=== PATIENT | male | born 1985 | race Caucasian/White ===

== ENCOUNTER 2022-10-05 12:01 | Emergency (ER) | payer OTHER, SELFPAY ==
--- NOTE | ~2022-10-05 | XR_ITS ---
EXAMINATION: XR pelvis 1-2V, XR femur LT min 2V DATE: 10/05/2022 14:15 INDICATION: Left hip pain. TECHNIQUE: 1. An anteroposterior view of the pelvis was obtained. 2. AP and lateral views of the left femur were obtained on separate overlapping proximal and distal i mages. COMPARISON: None. FINDINGS: Oblique fracture of the proximal left femoral diaphysis which is fixed with an antegrade intramedulla ry julio césar with a pair of interlocking femoral neck screws and a pair of interlocking distal metadiaphyse al screws. Alignment of the fixation is near-anatomic. There is periosteal reaction along the medial side of the fracture and slightly more prominent callus formation about the lateral margin of the fra cture. There is still some discernible lucency along the fracture plane. No new fractures identified. Joint spaces at the bilateral hip sacroiliac joints appear normal. There is a lucent tract potential ly for prior traction at the proximal left tibial metaphysis. There is an irregular cortical contour along the appears be a portion of the posterior weightbearing lateral femoral condyle and the lateral projection. There is rightward deviation of the lower sacrum and coccyx which could be developmental or sequela of prior trauma. Soft tissues are unremarkable. No knee joint effusion. IMPRESSION: 1. Internally fixed proximal diaphyseal fracture of the left femur which appears to be healing in garret r-anatomic alignment. 2. Suggestion of cortical irregularity along the posterior weightbearing lateral femoral condyle whic h could be seen with osteochondral lesion. Correlate with clinical history and could consider either CT or MRI for further evaluation. Reviewed, dictated and finalized at location A. IMPRESSION: 1. Internally fixed proximal diaphyseal fracture of the left femur which appear s to be healing in near-anatomic alignment. 2. Suggestion of cortical irregularity along the posterior weightbearing latera l femoral condyle which could be seen with osteochondral lesion. Correlate with clinical history and could consider either CT or MRI for further evaluation.
--- NOTE | ~2022-10-05 | CT_ITS ---
EXAMINATION: CT hip LT wo con DATE: 10/05/2022 15:17 INDICATION: Severe nontraumatic left hip pain post recent left femoral fracture fixation TECHNIQUE: High resolution computed tomography (CT) of the left hip was performed without intravenous contrast. Additional sagittal and coronal reconstructions were performed. Automated exposure control and iterative reconstruction technique were employed. The dose-length product was 117.49 mGy-cm. COMPARISON: Radiographs dated 10/05/2022 FINDINGS: Internally fixed comminuted fractures of the proximal left femur which includes the previous noted no ndisplaced oblique fracture of the proximal diaphysis as well as a minimally displaced intertrochante kimberly component which was not appreciated on the prior radiographs. Fractures fixed with a partially vi sualized intramedullary julio césar with a pair of interlocking femoral neck screws. The distal portion of th e medullary julio césar and a pair of additional distal interlocking screws seen on the prior radiographs are not included within the field of imaging. There is a small amount of callus formation about the frac ture which does not yet appear solidly bridging. Left hip joint space appears normal with no joint ef fusion. Minimal stranding in the subcutaneous fat localized to the likely site of the prior surgical wound. No abnormal fluid collections to suggest abscess or hematoma. The visualized portions of the v isceral organs in the pelvis are unremarkable including a normal appendix. No pathologically enlarged pelvic or inguinal lymphadenopathy. 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 IMPRESSION: 1. Expected appearance of a healing internally fixed intertrochanteric and subtrochanteric fracture o f the proximal left femur which is in near-anatomic alignment. Reviewed, dictated and finalized at location A. IMPRESSION: 1. Expected appearance of a healing internally fixed intertrochanteric and subt rochanteric fracture of the proximal left femur which is in near-anatomic align ment.
[2022-10-05 12:04] VITALS: BP 143/102; PULSE 119; RESP 20; TEMP 36.6; O2SAT 100
[2022-10-05 13:18] VITALS: BP 140/99; PULSE 108; RESP 18; O2SAT 100
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
[2022-10-05] MEDS: IBUPROFEN 400 MG TABLET 800 MG PO (14:40)
[2022-10-05] MEDS: HYDROcodone/acetaminophen (*CRX) 5-325 MG TABLET 1 TAB PO (14:41)
[2022-10-05 16:06] VITALS: BP 131/88; PULSE 130; RESP 18; O2SAT 100
== END 2022-10-05 16:11 | disposition home or self-care (01) ==
PROVIDERS: Emergency Provider Emergency Medicine
DX: M25.552 Pain in left hip (principal)
CPT/HCPCS: 72170; 73552; 73700; 99284; A9270

== ENCOUNTER 2022-11-02 04:56 | Emergency (ER) | payer OTHER, SELFPAY ==
--- NOTE | ~2022-11-02 | CT_ITS ---
Non-contrast CT scan of the Abdomen and Pelvis Clinical indication: Abdominal pain Technique: 2.5 mm axial scans were obtained through the abdomen and pelvis without intravenous or or al contrast. Dose reduction technique was used on this scan by utilizing automated exposure control a nd iterative reconstruction technique. The dose-length product (DLP) was 225.43 mGy-cm. Findings: Images through the lung bases reveal no abnormalities. There is a 2 mm left UVJ stone, with mild left hydroureteronephrosis and left perinephric stranding. There are additional multiple small bilateral nonobstructing renal stones measuring up to approximate ly 3 mm in size. No right ureteral stone or right hydronephrosis. The liver, spleen, pancreas, gallbladder, and adrenals appear normal. There is no aortic aneurysm. There is no evidence of bowel obstruction. Images through the pelvis were performed. There is no evidence of ascites or lymphadenopathy. Urinary bladder otherwise unremarkable. No pelvic mass seen. No ascites. Impression: 2 mm left UVJ stone, with mild left hydroureteronephrosis. Multiple additional small bilateral nonobstructing renal stones, as detailed above. Reviewed, dictated and finalized at location M. Impression: 2 mm left UVJ stone, with mild left hydroureteronephrosis. Multiple additional small bilateral nonobstructing renal stones, as detailed ab ove.
[2022-11-02 05:03] VITALS: BP 149/89; PULSE 84; RESP 23; TEMP 36.4; O2SAT 100
[2022-11-02] MEDS: SODIUM CHLORIDE 0.9% IV 1,000 ML 999 ML IV CONT ×2 (05:29→06:54)
[2022-11-02] MEDS: ONDANSETRON INJ 4 MG/2 ML VIAL IV PUSH (05:30)
[2022-11-02] MEDS: MORPHINE SULFATE (*CRX) 4 MG/ML INJ IV PUSH (05:30)
[2022-11-02 05:41] LABS: Basophils Percent Auto 0.2 % (0.2-1.2); Eosinophils Absolute Auto 0.1 K/mm3 (0-0.3); Hemoglobin 12.9 g/dL (14.0-18.0); Immature Granulocyte Absolute 0.06 K/mm3 (0.00-0.031); Immature Granulocyte Percent A 0.5 % (0-0.5); Lymphocytes Absolute Auto 2.15 K/mm3 (0.9-3.2); Lymphocytes Percent Auto 16.3 % (18.3-44.2); Mean Corpuscular HGB Conc 33.9 g/dl (32-36); Mean Corpuscular Hemoglobin 32.7 pg (26-34); Mean Corpuscular Volume 96.4 fl (80-100); Mean Platelet Volume 9.6 fl (7.4-10.4); Monocytes Absolute Auto 0.7 K/mm3 (0.1-0.6); Monocytes Percent Auto 5.2 % (2.6-8.5); Neutrophils Absolute Auto 10.1 K/mm3 (1.3-6.7); Neutrophils Percent Auto 76.8 % (45.5-73.1); Platelet Count Result 404 k/mm3 (150-375); Red Blood Count 3.94 M/mm3 (4.6-6.20); Red Cell Distribution Width 12.7 % (11.5-14.5); White Blood Count 13.2 K/mm3 (4.5-10.0)
[2022-11-02] MEDS: KETOROLAC 30 MG/ML VIAL (*BKC) IV PUSH (05:48)
[2022-11-02 05:52] LABS: Alanine Aminotransferase 24 U/L (6-50); Albumin Level 4.5 g/dL (3.5-5.1); Alkaline Phosphatase 146 U/L (38-126); Anion Gap 10 mmol/L (8-16); Aspartate Amino Transferase 28 U/L (17-59); Bilirubin,Total 0.4 mg/dL (0.2-1.3); Blood Urea Nitrogen 13 mg/dL (9-20); Calcium 9.8 mg/dL (8.4-10.2); Carbon Dioxide 24 mmol/L (22-30); Chloride 102 mmol/L (98-107); Estimated CRCL calculation 57 ml/min; Estimated Glomerular Filt Rate > 60; Glucose 109 mg/dL (65-110); Potassium 3.7 mmol/L (3.4-5.0); Sodium 136 mmol/L (137-145)
[2022-11-02] MEDS: HYDROmorphone HCL INJ (*CRX) 1 MG/ML SYR IV PUSH (05:57)
--- NOTE | 2022-11-02 06:12 | ED.ABDPAIN ---
HPI - Abdominal Pain General Chief Complaint: Abdominal Pain <Alyssia Frazier MD - Last Filed: 11/02/22 06:48> Stated Complaint: bladder pain, side pain, <Alyssia Frazier MD - Last Filed: 11/02/22 06:48> Time Seen by Provider: 11/02/22 05:06 <Alyssia Frazier MD - Last Filed: 11/02/22 06:48> History of Present Illness HPI narrative: Patient presents to the emergency department with severe flank pain. He is jumping around the room yelling and cursing and pain. He also states he cannot pee. Symptoms started last night. Denies fevers chills. Denies vomiting. <Alyssia Frazier MD - Last Filed: 11/02/22 06:48> Related Data Allergies/Adverse Reactions: Allergies Allergy/AdvReac Type Severity Reaction Status Date / Time No Known Allergies Allergy Verified 10/05/22 13:15 <Alyssia Frazier MD - Last Filed: 11/02/22 06:48> Review of Systems Review of Systems: Unable to obtain full review of systems due to patient's status and inability to give full history due to pain <Alyssia Frazier MD - Last Filed: 11/02/22 06:48> Exam Narrative: GENERAL: Appears in pain jumping around the room. HEAD: Normocephalic, atraumatic. EYES: EOMI. ENT: Nares clear, no rhinorrhea or epistaxis. NECK: Supple. CHEST: Clear to auscultation. No respiratory distress. HEART: Regular rate and rhythm. ABDOMEN: Soft, nontender, nondistended. EXTREMITIES: Normal range of motion. No edema. SKIN: Warm, dry, no rash. NEURO: No focal deficits. Alert and oriented x3. PSYCH: Normal mood and affect. <Alyssia Frazier MD - Last Filed: 11/02/22 06:48> Course Course Emergency Course: Differential diagnosis includes but not limited to kidney stone, pyelonephritis, colitis Pain not improved after morphine. Toradol and Dilaudid ordered. Patient resting. CT and labs pending <Alyssia Frazier MD - Last Filed: 11/02/22 06:48> Reevaluation(s) Reevaluation #1: Patient care was signed out to me by Dr. Urrutia with UA pending at time of signout. Patient is a 37-year-old male presented emergency department for evaluation of flank pain. Patient does have a 2 mm left UVJ stone. UA was pending at time of signout to make sure there is no underlying urinary tract infection. Patient did have 2+ blood but no evidence of infection at this time. Patient was discharged with urology follow-up. All questions and concerns were addressed. <Sebastian Perdomo MD - Last Filed: 11/02/22 17:31> Vital Signs Vital signs: Vital Signs Temperature 97.6 F 11/02/22 05:03 Pulse Rate 84 11/02/22 05:03 Respiratory Rate 23 H 11/02/22 05:03 Blood Pressure 149/89 H 11/02/22 05:03 Pulse Oximetry 100 11/02/22 05:03 Oxygen Delivery Room Air 11/02/22 05:03 Temperature 98.3 F 11/02/22 08:16 Pulse Rate 96 11/02/22 08:16 Respiratory Rate 16 11/02/22 08:16 Blood Pressure 132/95 H 11/02/22 08:16 Pulse Oximetry 100 11/02/22 08:01 Oxygen Delivery Room Air 11/02/22 05:03 <Alyssia Frazier MD - Last Filed: 11/02/22 06:48> Vital Signs Temperature 97.6 F 11/02/22 05:03 Pulse Rate 84 11/02/22 05:03 Respiratory Rate 23 H 11/02/22 05:03 Blood Pressure 149/89 H 11/02/22 05:03 Pulse Oximetry 100 11/02/22 05:03 Oxygen Delivery Room Air 11/02/22 05:03 Temperature 98.3 F 11/02/22 08:16 Pulse Rate 96 11/02/22 08:16 Respiratory Rate 16 11/02/22 08:16 Blood Pressure 132/95 H 11/02/22 08:16 Pulse Oximetry 100 11/02/22 08:01 Oxygen Delivery Room Air 11/02/22 05:03 <Sebastian Perdomo MD - Last Filed: 11/02/22 17:31> MDM - Abdominal Pain Lab Data Result diagrams: 11/02/22 05:34 11/02/22 05:34 <Alyssia Frazier MD - Last Filed: 11/02/22 06:48> Labs: Lab Results 11/02/22 11/02/22 Range/Units 05:34 08:19 WBC 13.2 H (4.5-10.0) K/mm3 RBC 3.94 L (4.6-6.20) M/mm3
--- NOTE | 2022-11-02 06:37 | PC.NURSE ---
Patient just came out into the nurses station demanding a piece of ice for his lips. Dr. Frazier and staff informed patient he could not have a piece of ice and instructed patient to return to his room.
--- NOTE | 2022-11-02 06:51 | PC.NURSE ---
Upsetter Helper asked patient if he could provide a urine sample. Patient reported he is unable to urinate and has been unable to urinate for [address] Frazier and Dr. Frazier instructed securities underwriter to do a bladder scan. Bladder scan performed and the most scanned was 64ml.
[2022-11-02 07:15] VITALS: BP 126/82; PULSE 90; RESP 14; O2SAT 100
[2022-11-02 08:00] VITALS: BP 132/84; PULSE 89; RESP 13; O2SAT 98
[2022-11-02 08:01] VITALS: PULSE 64; RESP 12; O2SAT 100
[2022-11-02 08:16] VITALS: BP 132/95; PULSE 96; RESP 16; TEMP 36.8
[2022-11-02 08:32] LABS: Appearance Urine Clear (Clear); Bacteria Urine None Seen /hpf; Bilirubin Urine Negative (Negative); Blood Urine 2+ (Negative); Color Urine Yellow (Yellow); Glucose Urine UA Negative (Negative); Ketones Urine Trace mg/dL (Negative); Leukocyte Esterase Ur Negative LEU/UL (Negative); Nitrate Urine Negative (Negative); Non Pathogenic Casts 0-2; Protein Urine Negative (Negative); Specific Grav Ur 1.012 (1.001-1.035); Squamous Epithelial Cell Urine None seen /hpf (Few); Urobilinogen Urine 0.2 mg/dL (<2.0); WBC Urine 0-5 /hpf; pH Urine 6.5 (5.0-9.0)
[2022-11-02 08:38] LABS: Add Urine Microscopic? YES
[2022-11-02 09:00] LABS: Barbiturate Screen Urine Negative (Negative); Benzodiazepines Screen Urine Negative (Negative)
[2022-11-02 09:03] LABS: Cannabinoid Screen Urine Positive (Negative); Cocaine Screen Urine Negative (Negative); Methadone Screen Urine Negative (Negative); Opiate Screen Urine Positive (Negative); Phencyclidine Screen Urine Negative (Negative)
== END 2022-11-02 09:02 | disposition home or self-care (01) ==
PROVIDERS: Emergency Provider Emergency Medicine
DX: N20.0 Calculus of kidney (principal)
CPT/HCPCS: 36415; 74176; 80053; 80307; 81001; 85025; 96361; 96374; 96375; 99284; J1170; J1885; J2270; J2405; J7030

== ENCOUNTER 2022-11-24 09:00 | Outpatient (RCR) | payer OTHER, SELFPAY ==
--- NOTE | 2022-10-27 10:59 | OPREHPOC ---
Outpatient Therapy Plan of Care This is a Multidisciplinary Plan of Care that may contain components documented by all disciplines (PT, OT, and ST.) PT Problem 1 PT Problem #1 Knowledge Deficit PT Goal 1 Goal Pt to be IND with issued HEP Target Visit 8 PT Problem 2 PT Problem #2 Pain PT Goal 1 Goal Pt to report hip pain no greater than 3/10 in the last week Target Visit 8 PT Goal 2 Goal Pt to report 85% improvement in overall function. PT Problem 3 PT Problem #3 Impaired Range of Motion PT Goal 1 Goal Pt to demonstrate passive hip flexion to 120 deg without an increase in pain Target Visit 8 PT Goal 2 Goal Pt to demonstrate passive hip rotation ROM that is equal to his R hip. Target Visit 8 PT Problem 4 PT Problem #4 Impaired Gait PT Goal 1 Goal Pt to ambulate on level ground without deviations Target Visit 8 PT Goal 2 Goal Pt to improve his 2 min walk distance from 340ft to 440ft. Target Visit 8 PT Problem 5 PT Problem #5 Impaired Functional Mobil PT Goal 1 Goal Pt to demonstrate a functional lift and carry of 30lb from ground without an increase in symptoms. Target Visit 8 PT Goal 2 Goal Pt to ambulate stairs with a reciproical pattern without the need for railings.
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
--- NOTE | 2022-11-02 11:58 | PCPTNOTE ---
Patient called & cancelled scheduled appointment this date due to having multiple kidney stones.
--- NOTE | 2022-11-09 08:34 | PCPTNOTE ---
Patient no showed to appointment this date. Called and left voicemail to call back to reschedule if possible.
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
== END 2022-11-24 10:56 | disposition home or self-care (01) ==
LOC: ANHGOSHPT 09:00
DX: S72.301D Unspecified fracture of shaft of right femur, subsequent encounter for closed fracture with routine healing (principal); M54.42 Lumbago with sciatica, left side; G89.29 Other chronic pain
CPT/HCPCS: 97110; 97112; 97140; 97161; 97530; 99199

== ENCOUNTER 2024-02-06 14:35 | Emergency (ER) | payer OTHER, SELFPAY ==
[2024-02-06] VITALS (48 sets, daily range): BP systolic 116–166; BP diastolic 87–116; PULSE 87–115; RESP 10–24; TEMP 36.6–36.9; O2SAT 96–100
--- NOTE | ~2024-02-06 | XR_ITS ---
EXAM: XR wrist LT 2V DATE: 02/06/2024 17:46 HISTORY: post reduction . COMPARISON: Same date at 3:44 PM. FINDINGS/IMPRESSION: Detail obscured by overlying cast material. Improved alignment of the comminuted intra-articular distal left radial fracture, with persistent mild impaction and mild displacement of the fracture fragments. Note: a true lateral view is not provided. Reviewed, dictated and finalized at location K. STRIAL TECHNOLOGY TEACHER
--- NOTE | ~2024-02-06 | XR_ITS ---
EXAMINATION: XR wrist LT min 3V DATE: 02/06/2024 15:49 INDICATION: Left wrist pain and deformity TECHNIQUE: Posteroanterior, ulnar deviation, oblique, and lateral views of the left wrist were obtain ed. COMPARISON: none FINDINGS: Comminuted intra-articular fracture of the distal left radius. There is posterior displacement and si gnificant posterior angulation resulting 35 degree dorsal tilt of the distal articular surface. No ot her fractures identified. Profiled joint spaces in the left hand are normal. IMPRESSION: 1. Significant posterior displacement and posterior angulation of a comminuted intra-articular fractu re of the distal left radius. Reviewed, dictated and finalized at location B. OL LUNCH MONITOR IMPRESSION: 1. Significant posterior displacement and posterior angulation of a comminuted intra-articular fracture of the distal left radius.
--- NOTE | 2024-02-06 15:38 | ED_ITS ---
HPI - Extremity Injury (Upper) General Chief Complaint: Extremity Injury, Upper <Judith Pereira APRN - Last Filed: 02/06/24 15:40> Stated Complaint: fall <Judith Pereira APRN - Last Filed: 02/06/24 15:40> Time Seen by Provider: 02/06/24 14:45 <Judith Pereira APRN - Last Filed: 02/06/24 15:40> Focused HPI: Patient is a 38-year-old male who presents to the ER after falling on rocks prior to arrival. He reports he was walking his dog when his dog got hyper. Patient reports the rocks underneath him started moving and he fell. He endorses left wrist pain and thinks he broke his wrist. Patient also endorses of laceration on his left forehead. He has full range of motion on his left shoulder and left elbow. Patient is able to manipulate all digits on his left hand and has no decreased sensation. He reports he had a femur fracture several months ago But denies any other pertinent medical history. GENERAL: Well-appearing, well-nourished, and in no acute distress. HEAD: Normocephalic, atraumatic. CHEST: Clear to auscultation. ?No respiratory distress. HEART: Regular rate and rhythm.? NEURO: ?Alert and oriented x3. Patient screened in triage and initial orders placed.? ?Additional care and disposition to be based upon?diagnostic testing and treatment. <Judith Pereira APRN - Last Filed: 02/06/24 15:40> History of Present Illness HPI narrative: Agree with the HPI as above <Ricardo Dubois MD - Last Filed: 02/06/24 20:41> Related Data Allergies/Adverse Reactions: Allergies Allergy/AdvReac Type Severity Reaction Status Date / Time No Known Allergies Allergy Verified 02/06/24 15:25 <Judith Pereira APRN - Last Filed: 02/06/24 15:40> Review of Systems 2 Review of Systems: As reviewed above in HPI <Ricardo Dubois MD - Last Filed: 02/06/24 20:41> Exam 2 Narrative: GENERAL: [Well-appearing, well-nourished, and in no acute distress.] HEAD: Normocephalic, left-sided 1.5 cm laceration to the lateral supraorbital/upper eyelid without any ocular involvement. No musculature involvement or significant dehiscence or bleeding EYES: [PERRLA and EOMI.] ENT: Nares clear, no rhinorrhea or epistaxis. Mucous membranes moist. NECK: Supple. CHEST: [Clear to auscultation. No respiratory distress.] HEART: [Regular rate and rhythm]. No murmur heard. [Normal peripheral pulses.] ABDOMEN: [Soft, nondistended], [nontender], [No rigidity or guarding] EXTREMITIES: Left upper extremity has a deformed posteriorly dorsally angulated left wrist, plastic mould maker strength is diminished, able to oppose each digit make a thumbs-up sign. Warm extremity, 2+ pulses bilaterally. No other obvious injuries to the extremities, full range of motion of the elbow and shoulder. SKIN: Contaminated abrasions some debris and his left-sided facial laceration and abrasions as well as left upper extremity with debris and grass/dirt with Road rash and minor abrasions lateral ulnar distal aspect left upper extremity NEURO: [No focal deficits]. Alert and oriented [x3.] PSYCH: [Normal mood and affect.] <Ricardo Dubois MD - Last Filed: 02/06/24 20:41> Course Vital Signs Vital signs: Vital Signs Temperature 36.6 C 02/06/24 14:40 Pulse Rate 102 H 02/06/24 14:40 Respiratory Rate 18 02/06/24 14:40 Blood Pressure 122/87 02/06/24 14:40 Pulse Oximetry 100 02/06/24 14:40 Temperature 36.7 C 02/06/24 18:30 Pulse Rate 108 H 02/06/24 19:12 Respiratory Rate 23 H 02/06/24 19:12 Blood Pressure 126/102 H 02/06/24 19:12 Pulse Oximetry 99 02/06/24 18:30 Oxygen Delivery Room Air 02/06/24 18:30 Oxygen Flow Rate 2 02/06/24 17:40 <Judith Pereira APRN - Last Filed: 02/06/24 15:40> Vital Signs Temperature 36.6 C 02/06/24 14:40 Pulse Rate 102 H 02/06/24 14:40 Respiratory Rate 18 02/06/24 14:40 Blood Pressure 122/87 02/06/24 14:40 Pulse Oximetry 100 02/06/24 14:40 Temperature 36.7 C 02/06/24 18:30 Pulse Rate 108 H 02/06/24 19:12 Respiratory Rate 23 H 02/06/24 19:12 Blood Pressure 126/102 H 02/06/24 19:12 Pulse Oximetry 99 02/06/24 18:30 Oxygen Delivery Room Air 02/06/24 18:30 Oxygen Flow Rate 2 02/06/24 17:40 <Ricardo Dubois MD - Last Filed: 02/06/24 20:41> Procedures Laceration Laceration 1: Date: 02/06/24 <Ricardo Dubois MD - Last Filed: 02/06/24 20:41> Time: 17:35 <Ricardo Dubois MD - Last Filed: 02/06/24 20:41> Site: face <Ricardo Dubois MD - Last Filed: 02/06/24 20:41> Side (If applicable): left <Rciardo Dubois MD - Last Filed: 02/06/24 20:41> Size (cm): 1.5 <Ricardo Dubois MD - Last Filed: 02/06/24 20:41> Description: linear <Ricardo Dubois MD - Last Filed: 02/06/24 20:41> Depth: simple, single layer <Ricardo Dubois MD - Last Filed: 02/06/24 20:41> Local Anesthetic: none <Ricardo Dubois MD - Last Filed: 02/06/24 20:41> Pre-repair: wound explored, irrigated extensively, minor debridement and deep structures intact <Ricardo Dubois MD - Last Filed: 02/06/24 20:41> ====== Skin Level ======: Skin layer closed with: dermabond <Ricardo Dubois MD - Last Filed: 02/06/24 20:41> ====== Subcutaneous Layer ======: ====== Muscle Layer ======: ====== Tendon Layer ======: Dressing: dressing applied overtop, hemostasis achieved. <Ricardo Dubois MD - Last Filed: 02/06/24 20:41> Orthopedic Fracture Reduction Fracture #1: Fracture Reduction date: 02/06/24 <Ricardo Dubois MD - Last Filed: 02/06/24 20:41> Fracture Reduction time: 17:30 <Ricardo Dubois MD - Last Filed: 02/06/24 20:41> Time Out Performed: Yes <Ricardo Dubois MD - Last Filed: 02/06/24 20:41> Side: left <Ricardo Dubois MD - Last Filed: 02/06/24 20:41> Fracture Reduction Location: radius <Ricardo Dubois MD - Last Filed: 02/06/24 20:41> Analgesia: procedural sedation <Ricardo Dubois MD - Last Filed: 02/06/24 20:41> Pre-Procedure Neuro Vascular Exam: normal <Ricardo Dubois MD - Last Filed: 02/06/24 20:41> Technique: direct manipulation and traction/counter-traction <Ricardo Dubois MD - Last Filed: 02/06/24 20:41> Post Reduction X-rays Demonstrate: acceptable reduction <Ricardo Dubois MD - Last Filed: 02/06/24 20:41> Post-reduction neuro exam: intact <Ricardo Dubois MD - Last Filed: 02/06/24 20:41> Post-reduction vascular exam: intact <Ricardo Dubois MD - Last Filed: 02/06/24 20:41> Splint Applied: Yes <Ricardo Dubois MD - Last Filed: 02/06/24 20:41> Patient Tolerated Procedure: well and no complications <Ricardo Dubois MD - Last Filed: 02/06/24 20:41> Orthopedic Splinting/Casting Injury #1: Splinting/Casting Date: 02/06/24 <Ricardo Dubois MD - Last Filed: 02/06/24 20:41> Splinting/Casting Time: 17:50 <Ricardo Dubois MD - Last Filed: 02/06/24 20:41> Side: left <Ricardo Dubois MD - Last Filed: 02/06/24 20:41> Upper Extremity Injury Location: forearm <Ricardo Dubois MD - Last Filed: 02/06/24 20:41> Upper Extremity Immobilizer: sugar tong splint <Ricardo Dubois MD - Last Filed: 02/06/24 20:41> Splint: customized in ED <Ricardo Dubois MD - Last Filed: 02/06/24 20:41> Pre-Procedure Neuro Vascular Exam: normal <Ricardo Dubois MD - Last Filed: 02/06/24 20:41> Post-Procedure Neuro Vascular Exam: normal <Ricardo Dubois MD - Last Filed: 02/06/24 20:41> Other Orthopedic Equipment: other (sling) <Ricardo Dubios MD - Last Filed: 02/06/24 20:41> Procedural Sedation Procedural Sedation #1: Procedural Sedation Date: 02/06/24 <Ricardo Dubois MD - Last Filed: 02/06/24 20:41> Procedural Sedation Time: 17:24 <Ricardo Dubois MD - Last Filed: 02/06/24 20:41> Presedation Evaluation: Mallampati 1, last meal greater than 8 hours prior, awake alert oriented, no respiratory support, end-tidal CO2 intact with good capnography and waveform. Vital signs at bedside obtained with tachycardia 108, normal blood pressure, no tachypnea, no fever. Patient consents verbally and signs paperwork to the Orthopedic reduction and procedural sedation. <Ricardo Dubois MD - Last Filed: 02/06/24 20:41> Procedure: Left upper extremity distal radius fracture reduction, splinting < Ricardo Dubois MD - Last Filed: 02/06/24 20:41> Provider Performed: sedation and procedure <Ricardo Dubois MD - Last Filed: 02/06/24 20:41> Time Out: 1724. Confirmed patient's age, date of , name, procedure and risk factors <Ricardo Dubois MD - Last Filed: 02/06/24 20:41> Informed Consent Obtained: yes <Ricardo Dubois MD - Last Filed: 02/06/24 20:41> Equipment in Room: bag and mask, capnography, front desk monitor, crash cart, oxygen, pulse oximeter and suction <Ricardo Dubois MD - Last Filed: 02/06/24 20:41> Plan for Sedation: moderate sedation <Ricardo Dubois MD - Last Filed: 02/06/24 20:41> ASA Class: I <Ricardo Dubois MD - Last Filed: 02/06/24 20:41> Mallampati Classification: class I <Ricardo Dubois MD - Last Filed: 02/06/24 20:41> NPO Status: last solid food (hours ago) (8) <Ricardo Dubois MD - Last Filed: 02/06/24 20:41> Explanation to Patient/Family: Risk/Benefits/Alternatives and Pt/Family agreed with plan < Ricardo Dubois MD - Last Filed: 02/06/24 20:41> Pt. Educated on Procedural Sedation: Yes <Ricardo Dubois MD - Last Filed: 02/06/24 20:41> Re-evaluated immediately prior: Yes <Ricardo Dubois MD - Last Filed: 02/06/24 20:41> Preparation: front desk monitor applied, pulse oximeter, capnometry used, supplemental O2 applied, suction/airway equipment at bedside and IV secured < Ricardo Dubois MD - Last Filed: 02/06/24 20:41> Ketamine: IV <Ricardo Dubois MD - Last Filed: 02/06/24 20:41> Ketamine dose (mg): 30 <Ricardo Dubois MD - Last Filed: 02/06/24 20:41> IV Propofol dose (mg): 90 <Ricardo Dubois MD - Last Filed: 02/06/24 20:41> Patient Tolerated Procedure: well and no complications <Ricardo Dubois MD - Last Filed: 02/06/24 20:41> Complications: none <Ricardo Dubois MD - Last Filed: 02/06/24 20:41> Total Sedation Time (min): 25 <Ricardo Dubois MD - Last Filed: 02/06/24 20:41> Additional Comments: Repeat bolus dose of propofol for a total of 90 mg during procedure, procedure includes fracture reduction and splinting, laceration repair. Monitored for over 1 hour post sedation for recovery and return to normal mentation with p.o. tolerating. No immediate complications. <Ricardo Dubois MD - Last Filed: 02/06/24 20:41> MDM - Extremity Injury (Upper) MDM Narrative Medical decision making narrative: 38-year-old male presenting after he fell earlier in his driveway. He has an injury to his left upper extremity with a dorsally angulated deformity consistent with a Colles fracture and likely dorsal/distal radius fracture. He also has a small abrasion/laceration to the left side of his face. Road rash over the left side of his forehead and left upper extremity lateral ulnar aspect of his forearm. Patient has 2+ radial pulses, slightly diminished plastic mould maker strength but able to oppose each digit, ranges digit and make a thumbs up and okay sign on the left upper extremity. He is tachycardic with a pulse or 2 but otherwise not any acute distress, saturating well on room air, afebrile, blood pressure within normal limits. He did strike his head but is not any blood thinner medications and has no seizure history. Did not lose consciousness is not acting altered. No nausea vomiting. Meet [place] head CT criteria to rule out significant intracranial concerns without imaging at this time. He is not sure if his tetanus is up-to-date. His wounds will require relocation after x-ray imaging. Will repair his small eyelid laceration with Dermabond based on the size and lack of significant dehiscence and clean up his abrasions on the upper extremity and left side of his face. IV was established and blood was drawn. Patient was provided Dilaudid for analgesia. Patient was given a dose of Ancef here for his contaminated abrasions, facial laceration and wounds with his fracture of the left upper extremity. X-rays of the left upper extremity were independently reviewed and there is a significant posterior displaced angulated fracture with intra-articular fracture extension of the distal left radius. Laboratory studies show slight leukocytosis of 12.9, no anemia. Normal coags. Electrolytes within normal limits, renal and hepatic function within normal limits. Patient will require IV sedation at this time and patient signed consent form for the procedure and dislocation reduction. IV was established, patient is placed on capnography, induction agents with a combination of 30 mg of IV ketamine and 60 mg of IV propofol was used. Patient tolerated the procedure well and had successful relocation of his posterior dislocation, placed into a sugar-tong splint and molded into a custom fit. Patient was observed for recovery after his sedation and was back to his baseline mentation, awake alert oriented, tolerating p.o. intake and has no further concerns. His pain is significantly improved and he now has full range of motion with plastic mould maker strength, opposition of each finger tip, warm extremity with 2+ pulses. Postprocedure x-rays were obtained which shows better alignment of the fracture but still comminuted with impaction. I relayed the imaging findings and plan of care with the orthopedic surgeon Dr. Daniels over the phone. After discussion over the phone recommendations are to have him follow-up in his clinic in the next several days and pain control regimen. Patient was agreeable to this plan of care. His wounds are cleaned and laceration repaired. Patient was given a sling for comfort and will be discharged home with pain medication regimen and outpatient orthopedic surgery clinic instructions and follow-up. Patient was given strict return precautions including developing any types of paresthesias, numbness, decreased plastic mould maker strength, coolness to his left upper extremity or any other concerns and he should return to the emergency department for evaluation at that time. <Ricardo Dubois MD - Last Filed: 02/06/24 20:41> Medical Records Attestation: I reviewed the patient's medical records. <Ricardo Dubois MD - Last Filed: 02/06/24 20:41> Lab Data Attestation: I reviewed the patient's lab results. <Ricardo Dubios MD - Last Filed: 02/06/24 20:41> Result diagrams: 02/06/24 16:55 02/06/24 16:55 <Judith Pereira APRN - Last Filed: 02/06/24 15:40> Labs: Lab Results 02/06/24 Range/Units 16:55 WBC 12.9 H (4.5-10.0) K/mm3 RBC 4.06 L (4.6-6.20) M/mm3 Hgb 13.4 L (14.0-18.0) g/dL Hct 38.9 L (42.0-52.0) % MCV 95.8 (80-100) fl MCH 33.0 (26-34) pg MCHC 34.4 (32-36) g/dl RDW 13.0 (11.5-14.5) % Plt Count 348 (150-375) k/mm3 MPV 10.2 (7.4-10.4) fl Immature Gran % (Auto) 0.5 (0-0.5) % Neut % (Auto) 70.2 (45.5-73.1) % Lymph % (Auto) 19.9 (18.3-44.2) % [place] % (Auto) 7.3 (2.6-8.5) % Eos % (Auto) 1.6 (0-4.4) % Baso % (Auto) 0.5 (0.2-1.2) % Lymph # (Auto) 2.57 (0.9-3.2) K/mm3 [place] # (Auto) 0.9 H (0.1-0.6) K/mm3 Eos # (Auto) 0.2 (0-0.3) K/mm3 Baso # (Auto) 0.1 (0.0-0.1) K/mm3 Abs Immat Gran (auto) 0.07 H (0.00-0.031) K/mm3 Absolute Neuts (auto) 9.1 H (1.3-6.7) K/mm3 Absolute Nucleated RBC 0.000 (0.0-0.012) K/mm3 Nucleated RBC % 0.0 (0.0-0.2) % PT 12.6 (11.1-14.7) Seconds INR 0.9 APTT 24.0 (22.3-36.8) Seconds Sodium 139 (137-145) mmol/L Potassium 4.2 (3.4-5.0) mmol/L Chloride 107 (98-107) mmol/L Carbon Dioxide 27 (22-30) mmol/L Anion Gap 5 (4-12) mmol/L BUN 12 (9-20) mg/dL Creatinine 0.90 (0.7-1.3) mg/dL Estim Creat Clear Calc 74 ml/min Estimated GFR > 60 (59 - ) Glucose 81 (65-110) mg/dL Calcium 9.5 (8.4-10.2) mg/dL Total Bilirubin 0.3 (0.2-1.3) mg/dL AST 48 (17-59) U/L ALT 54 H (6-50) U/L Alkaline Phosphatase 92 (38-126) U/L Total Protein 7.0 (6.3-8.2) g/dL Albumin 4.6 (3.5-5.1) g/dL <Judith Pereira, INSIDE SALES ACCOUNT REPRESENTATIVE - Last Filed: 02/06/24 15:40> Lab Results 02/06/24 Range/Units 16:55 WBC 12.9 H (4.5-10.0) K/mm3 RBC 4.06 L (4.6-6.20) M/mm3 Hgb 13.4 L (14.0-18.0) g/dL Hct 38.9 L (42.0-52.0) % MCV 95.8 (80-100) fl MCH 33.0 (26-34) pg MCHC 34.4 (32-36) g/dl RDW 13.0 (11.5-14.5) % Plt Count 348 (150-375) k/mm3 MPV 10.2 (7.4-10.4) fl Immature Gran % (Auto) 0.5 (0-0.5) % Neut % (Auto) 70.2 (45.5-73.1) % Lymph % (Auto) 19.9 (18.3-44.2) % [place] % (Auto) 7.3 (2.6-8.5) % Eos % (Auto) 1.6 (0-4.4) % Baso % (Auto) 0.5 (0.2-1.2) % Lymph # (Auto) 2.57 (0.9-3.2) K/mm3 [place] # (Auto) 0.9 H (0.1-0.6) K/mm3 Eos # (Auto) 0.2 (0-0.3) K/mm3 Baso # (Auto) 0.1 (0.0-0.1) K/mm3 Abs Immat Gran (auto) 0.07 H (0.00-0.031) K/mm3 Absolute Neuts (auto) 9.1 H (1.3-6.7) K/mm3 Absolute Nucleated RBC 0.000 (0.0-0.012) K/mm3 Nucleated RBC % 0.0 (0.0-0.2) % PT 12.6 (11.1-14.7) Seconds INR 0.9 APTT 24.0 (22.3-36.8) Seconds Sodium 139 (137-145) mmol/L Potassium 4.2 (3.4-5.0) mmol/L Chloride 107 (98-107) mmol/L Carbon Dioxide 27 (22-30) mmol/L Anion Gap 5 (4-12) mmol/L BUN 12 (9-20) mg/dL Creatinine 0.90 (0.7-1.3) mg/dL Estim Creat Clear Calc 74 ml/min Estimated GFR > 60 (59 - ) Glucose 81 (65-110) mg/dL Calcium 9.5 (8.4-10.2) mg/dL Total Bilirubin 0.3 (0.2-1.3) mg/dL AST 48 (17-59) U/L ALT 54 H (6-50) U/L Alkaline Phosphatase 92 (38-126) U/L Total Protein 7.0 (6.3-8.2) g/dL Albumin 4.6 (3.5-5.1) g/dL <Ricardo Dubois MD - Last Filed: 02/06/24 20:41> Imaging Data Attestation: I personally reviewed and interpreted this imaging study as follows: < Ricardo Dubois MD - Last Filed: 02/06/24 20:41> My impression: Impressions Wrist X-Ray 02/06/24 15:52 IMPRESSION: 1. Significant posterior displacement and posterior angulation of a comminuted intra-articular fracture of the distal left radius. <Ricardo Dubois MD - Last Filed: 02/06/24 20:41> Discharge Plan Discharge Clinical Impression: Fracture of distal end of radius with dorsal angulation, Distal radius fracture, left, Facial laceration, Superficial abrasion of left eye region, CHI (closed head injury), Abrasion of forearm, left <Judith Pereira APRN - Last Filed: 02/06/24 15:40> Patient Disposition: Home, Self-Care <Judith Pereira APRN - Last Filed: 02/06/24 15:40> Condition: Stable <Judith Pereira APRN - Last Filed: 02/06/24 15:40> Instructions: Antibiotic Form, Arm Fracture in Adults (ED), Laceration (ED), Wrist Fracture in Adults (ED), How to Use a Sling (ED), Splint Care (ED) <Judith Pereira APRN - Last Filed: 02/06/24 15:40> Additional Instructions: We did reduce your dislocated and fractured distal radius fracture here at bedside. We spoke to the orthopedic surgeon Dr. Daniels who will be able to see a clinic on outpatient basis. We have placed to a splint and a sling for comfort. We have provided instructions on how to use her splint and care for your arm fracture. We will send you home with high-dose pain medications as needed as well as [id number] pain medications for around the clock care. If you develop any numbness, tingling, discoloration in her fingers or any increased or worsening pain please return to the emergency department otherwise follow-up with Orthopedic surgery on outpatient basis. We will also be sending home with antibiotics for your lacerations that needed cleaning and looked contaminated. <Judith Pereira APRN - Last Filed: 02/06/24 15:40> Patient Language: Chadian <Judith Pereira APRN - Last Filed: 02/06/24 15:40> Prescriptions: New acetaminophen [Tylenol Extra Strength] 500 mg tablet 1,000 mg PO Q6H PRN (Reason: pain) Qty: 30 0RF methocarbamol 750 mg tablet 750 mg PO TID PRN (Reason: pain) Qty: 20 0RF cephalexin 500 mg capsule 500 mg PO Q12H 7 Days Qty: 14 0RF ibuprofen 600 mg tablet 600 mg PO TID PRN (Reason: pain) Qty: 20 0RF oxycodone 5 mg tablet 5 mg PO Q8H PRN (Reason: pain) Qty: 12 0RF No Action hydrocodone-acetaminophen 5-325 mg tablet 1 tablet PO Q6H PRN (Reason: pain) Qty: 20 0RF ondansetron 4 mg tablet,disintegrating 4 mg PO Q8H PRN (Reason: nausea and vomiting) Qty: 20 0RF ketorolac 10 mg tablet 10 mg PO Q6H PRN (Reason: pain) 5 Days Qty: 20 0RF tamsulosin [Flomax] 0.4 mg capsule 0.4 mg PO DAILY Qty: 14 0RF <Judith Pereira APRN - Last Filed: 02/06/24 15:40> Follow-up/Referrals: Jung Daniels MD [Physician] - 1 Week (Left-sided distal radius fracture) UNKNOWN,DOCTOR [Primary Care Provider] - <Judith Pereira APRN - Last Filed: 02/06/24 15:40> Time of Disposition: 18:26 <Judith Pereira APRN - Last Filed: 02/06/24 15:40> 18:26 <Ricardo Dubois MD - Last Filed: 02/06/24 20:41>
[2024-02-06 17:00] LABS: Basophils Absolute Auto 0.1 K/mm3 (0.0-0.1); Basophils Percent Auto 0.5 % (0.2-1.2); Eosinophils Absolute Auto 0.2 K/mm3 (0-0.3); Eosinophils Percent Auto 1.6 % (0-4.4); Hematocrit 38.9 % (42.0-52.0); Hemoglobin 13.4 g/dL (14.0-18.0); Immature Granulocyte Absolute 0.07 K/mm3 (0.00-0.031); Immature Granulocyte Percent A 0.5 % (0-0.5); Lymphocytes Absolute Auto 2.57 K/mm3 (0.9-3.2); Lymphocytes Percent Auto 19.9 % (18.3-44.2); Mean Corpuscular HGB Conc 34.4 g/dl (32-36); Mean Corpuscular Volume 95.8 fl (80-100); Mean Platelet Volume 10.2 fl (7.4-10.4); Monocytes Absolute Auto 0.9 K/mm3 (0.1-0.6); Monocytes Percent Auto 7.3 % (2.6-8.5); Neutrophils Absolute Auto 9.1 K/mm3 (1.3-6.7); Neutrophils Percent Auto 70.2 % (45.5-73.1); Platelet Count Result 348 k/mm3 (150-375); Red Blood Count 4.06 M/mm3 (4.6-6.20); White Blood Count 12.9 K/mm3 (4.5-10.0)
[2024-02-06 17:09] LABS: Alanine Aminotransferase 54 U/L (6-50); Albumin Level 4.6 g/dL (3.5-5.1); Alkaline Phosphatase 92 U/L (38-126); Anion Gap 5 mmol/L (4-12); Aspartate Amino Transferase 48 U/L (17-59); Bilirubin,Total 0.3 mg/dL (0.2-1.3); Blood Urea Nitrogen 12 mg/dL (9-20); Calcium 9.5 mg/dL (8.4-10.2); Carbon Dioxide 27 mmol/L (22-30); Chloride 107 mmol/L (98-107); Estimated CRCL calculation 74 ml/min; Estimated Glomerular Filt Rate > 60; Glucose 81 mg/dL (65-110); Potassium 4.2 mmol/L (3.4-5.0); Sodium 139 mmol/L (137-145)
[2024-02-06 17:13] LABS: INR 0.9; Prothrombin Time 12.6 Seconds (11.1-14.7)
[2024-02-06] MEDS: KETAMINE HCL (*CRX) 500 MG/10 ML VIAL 30 MG IV PUSH (17:24)
[2024-02-06] MEDS: PROPOFOL IV EMULSION 200 MG/20 ML VIAL 60 MG IV PUSH (17:24)
[2024-02-06] MEDS: SODIUM CHLORIDE 0.9% IV 1,000 ML 999 ML (17:39)
[2024-02-06] MEDS: HYDROmorphone HCL INJ (*CRX) 1 MG/ML SYR 0.5 MG IV PUSH (17:52)
[2024-02-06] MEDS: ceFAZolin 2 GM/D5W 50 ML 2 GM/50 ML BAG IVPB (18:26)
--- NOTE | 2024-02-06 19:28 | PC.NURSE ---
1730 30mg of Propofol given per verbal order by EDP for Moderate sedation for left wrist dislocation.
== END 2024-02-06 19:26 | disposition home or self-care (01) ==
PROVIDERS: Emergency Provider Student in an Organized Health Care Education/Training Program
DX: S52.502A Unspecified fracture of the lower end of left radius, initial encounter for closed fracture (principal); S01.81XA Laceration without foreign body of other part of head, initial encounter; S50.812A Abrasion of left forearm, initial encounter; W19.XXXA Unspecified fall, initial encounter
CPT/HCPCS: 12011; 25605; 36415; 73100; 73110; 80053; 85025; 85610; 85730; 96361; 96365; 96375; 99285; A4565; J0690; J1171; J2704; J7030

== ENCOUNTER 2024-02-14 11:15 | Outpatient (CLI) | payer OTHER, SELFPAY ==
--- NOTE | ~2024-02-14 | XR_ITS ---
EXAM: XR wrist LT min 3V DATE: 02/14/2024 11:37 HISTORY: S52.532A - Colles' fracture of left radius, initial encou... . COMPARISON: 02/06/2024. FINDINGS: Radiologic detail obscured by cast material. Redemonstration of the comminuted intra-artic ular distal left radial fracture. An anterior radial fragment is displaced and rotated. Moderate soft tissue swelling about the wrist. IMPRESSION: Comminuted, intra-articular distal left radial fracture, in cast. An anterior radial frag ment appears displaced/rotated, which may be secondary to change in position or was obscured in prior radiographs. Increasing wrist soft tissue swelling Reviewed, dictated and finalized at location K. ORMS SALES REPRESENTATIVE IMPRESSION: Comminuted, intra-articular distal left radial fracture, in cast. A n anterior radial fragment appears displaced/rotated, which may be secondary to change in position or was obscured in prior radiographs. Increasing wrist soft tissue swelling
== END 2024-02-14 11:16 | disposition home or self-care (01) ==
PROVIDERS: PCP Family Medicine; Visit Provider Orthopaedic Surgery
DX: S52.572A Other intraarticular fracture of lower end of left radius, initial encounter for closed fracture (principal); X58.XXXA Exposure to other specified factors, initial encounter
CPT/HCPCS: 73110